=== PATIENT | male | born 1990 | race Caucasian/White ===

== ENCOUNTER → 2022-07-05 | Outpatient (CLI) | payer OTHER ==
--- NOTE | 2022-07-06 07:32 | US ---
EXAMINATION TYPE: US kidneys/renal and bladder DATE OF EXAM: 07/05/2022 COMPARISON: NONE CLINICAL HISTORY: R31.1 GROSS HEMATURIA. microscopic hematuria. No pain. No increase in urgency. EXAM MEASUREMENTS: Right Kidney: 11.5 x 5.2x 4.3 cm Left Kidney: 11.3 x 4.7 x 5.5 cm Right Kidney: No hydronephrosis or masses seen Left Kidney: No hydronephrosis or masses seen, limited visualization of lower pole due to bowel gas Bladder: distended, anechoic Bilateral Jets seen There is no evidence for hydronephrosis at this point in time. No nephrolithiasis is seen. No moisés s are identified. The urinary bladder is anechoic. Bilateral ureteral jets are seen. IMPRESSION: 1. No evidence of obstructive uropathy. 2. No definitive urolithiasis
== END | disposition home or self-care (01) ==
LOC: RADUSWWP 16:19
PROVIDERS: ATTEND Urology
DX: R31.1 Benign essential microscopic hematuria (principal)
CPT/HCPCS: 76770